=== PATIENT | male | born 1990 | race Caucasian/White ===

== ENCOUNTER 2016-09-28 15:06 | Emergency (ER) | payer SELFPAY ==
[2016-09-28 15:18] VITALS: BP 154/90; PULSE 102; RESP 16; TEMP 97.4; O2SAT 100
== END 2016-09-28 15:46 | disposition home or self-care (01) | DRG 561 ==
LOC: ED 15:06
DX: S02.5XXD Fracture of tooth (traumatic), subsequent encounter for fracture with routine healing (principal); K02.9 Dental caries, unspecified
CPT/HCPCS: 99282

== ENCOUNTER 2016-11-18 13:55 | Emergency (ER) | payer SELFPAY ==
[2016-11-18] MEDS ORDERED: MORPHINE SULFATE 10 MG/ML SOL IV PRN (14:18)
[2016-11-18] MEDS ORDERED: NITROGLYCERIN 0.4 MG TAB SL PRN (14:18)
[2016-11-18] MEDS ORDERED: SODIUM CHLORIDE 0.9% FLUSH 10 ML SOL IV PRN (14:18)
[2016-11-18] MEDS ORDERED: ASPIRIN 81 MG CHEWABLE CTB PO STA (14:18)
[2016-11-18 14:23] VITALS: TEMP 98.4; O2SAT 98
[2016-11-18 14:32] LABS: BASOPHILS % (AUTO) 1 % (0-3); EOSINOPHILS % (AUTO) 2 % (0-9); HEMATOCRIT 43 % (39-53); MEAN CORPUSCULAR VOLUME 94 fL (80-100); MONOCYTES % (AUTO) 5.7 % (0-12); NEUTROPHILS % (AUTO) 62.1 % (37-80)
[2016-11-18] MEDS ORDERED: ASPIRIN 81 MG CHEWABLE CTB ONE (14:43)
[2016-11-18 14:49] LABS: CALCIUM 8.7 mg/dl (8.5-10.1); GLOM FILT RATE 105 mL/min (>60); POTASSIUM 4.1 mMol/L (3.5-5.1); SODIUM 141 mMol/L (136-145)
[2016-11-18 15:39] VITALS: BP 130/84; PULSE 89; RESP 16
== END 2016-11-18 15:53 | disposition home or self-care (01) | DRG 195 ==
LOC: ED 13:55
DX: R09.1 Pleurisy (principal); Z72.0 Tobacco use
CPT/HCPCS: 36415; 71010; 80048; 82550; 84484; 85025; 85378; 85610; 93005; 99283

== ENCOUNTER 2017-01-18 20:10 | Emergency (ER) | payer OTHER ==
[2017-01-18 20:24] VITALS: RESP 14; TEMP 98.6
[2017-01-18 21:48] VITALS: BP 157/59; PULSE 94; O2SAT 99
== END 2017-01-18 21:00 | DRG 552 ==
LOC: ED 20:10
DX: M54.2 Cervicalgia (principal); M54.9 Dorsalgia, unspecified; V48.5XXA Car driver injured in noncollision transport accident in traffic accident, initial encounter; Y92.411 Interstate highway as the place of occurrence of the external cause
CPT/HCPCS: 99282

== ENCOUNTER 2017-09-06 21:59 | Emergency (ER) | payer SELFPAY ==
[2017-09-06 22:10] VITALS: RESP 20; TEMP 99
[2017-09-06 23:25] VITALS: BP 116/79; PULSE 72; O2SAT 98
[2017-09-06] MEDS ORDERED: DIAZEPAM 5MG/ML SOL IV ONE (23:55)
[2017-09-07] MEDS ORDERED: DIAZEPAM 5 MG TAB PO ONE (00:01)
[2017-09-07] MEDS ORDERED: DIAZEPAM 5 MG TAB ONE (00:01)
== END 2017-09-07 00:33 | disposition home or self-care (01) | DRG 563 ==
LOC: ED 21:59
DX: S29.012A Strain of muscle and tendon of back wall of thorax, initial encounter (principal); W18.00XA Striking against unspecified object with subsequent fall, initial encounter
CPT/HCPCS: 72070; 99283; A9270-GY

== ENCOUNTER 2017-10-27 17:25 | Emergency (ER) | payer MEDICAID, OTHER ==
[2017-10-27 18:38] VITALS: TEMP 96.7; O2SAT 100
[2017-10-27 19:32] VITALS: BP 106/79; PULSE 109; RESP 18
== END 2017-10-27 19:02 | disposition home or self-care (01) | DRG 935 ==
LOC: ED 17:25
DX: T24.212A Burn of second degree of left thigh, initial encounter (principal); R23.3 Spontaneous ecchymoses
CPT/HCPCS: 99282; 99283

== ENCOUNTER 2018-01-10 22:34 | Emergency (ER) | payer OTHER ==
[2018-01-10 23:22] LABS: HEMATOCRIT 43 % (39-53); HEMOGLOBIN 14.9 gm/dl (13.5-17.7); MEAN CORPUSCULAR HEMOGLOBIN 32.9 pg (27.0-32.0); MEAN CORPUSCULAR HGB CONC 34.4 gm/dl (32.0-36.0); MEAN CORPUSCULAR VOLUME 96 fL (80-100)
[2018-01-10 23:32] LABS: APPEARANCE,URINE Clear; BILIRUBIN,URINE NEGATIVE (NEGATIVE); COLOR,URINE Light yellow; GLUCOSE, URINE (UA) NEGATIVE (NEGATIVE); KETONES,URINE NEGATIVE (NEGATIVE); LEUKOCYTE ESTERASE ,URINE TRACE (NEGATIVE); NITRATE,URINE NEGATIVE (NEGATIVE); OCCULT BLOOD,URINE NEGATIVE (NEG-TRACE); UROBILINOGEN,URINE 0.2 (0.2-1.0 EU)
[2018-01-10 23:41] LABS: ALBUMIN 3.6 gm/dl (3.4-5.0); BILIRUBIN,TOTAL 0.1 mg/dl (0.2-1.0); CALCIUM 8.8 mg/dl (8.5-10.1); CARBON DIOXIDE 28.1 mEq/L (21-32); CREATININE 0.65 mg/dl (0.80-1.30); THYROID STIMULATING HORMONE 0.74 uIU/ml (0.358-3.740); TOTAL PROTEIN 7.3 gm/dl (6.4-8.2)
[2018-01-10 23:41] LABS: AMPHETAMINES NEGATIVE (NEGATIVE); BACTERIA 1+ (< 1+); BARBITUATES NEGATIVE (NEGATIVE); BENZODIAZEPINES NEGATIVE (NEGATIVE); CANNABINOL(THC) NEGATIVE (NEGATIVE); COCAINE(COC) NEGATIVE (NEGATIVE); CRYSTALS NEGATIVE (0-3 AVE/HPF); EPITHELIAL CELLS 0-2 (SQUAMOUS); METHADONE NEGATIVE (NEGATIVE); METHAMPHETAMINES NEGATIVE (NEGATIVE); OPIATES(OP13) NEGATIVE (NEGATIVE); OXYCODONE(OXY) NEGATIVE (NEGATIVE); PROPOXYPHENE(PPX) NEGATIVE (NEGATIVE); RBC,URINE 0-2 (0-3AV/HPF); TRICYCLIC ANTIDEPRESSANTS NEGATIVE (NEGATIVE)
[2018-01-10 23:42] LABS: ALCOHOL 0.22 gm/dl (0.000-0.08)
[2018-01-10 23:43] LABS: BAND NEUTROPHILS % (MANUAL) 6 %; BASOPHILS % (MANUAL) 0 % (0-3); EOSINOPHILS % (MANUAL) 1 % (0-9); LYMPHOCYTES % (MANUAL) 33 % (10-50); MONOCYTES % (MANUAL) 6 % (0-12); NEUTROPHILS % (MANUAL) 54 % (37-80)
[2018-01-10 23:44] LABS: NORMAL RBCS PRESENT
[2018-01-11 00:41] LABS: ACETAMINOPHEN < 2 ug/ml (10-30); SALICYLATE 5.9 mg/dl (2.8-30.0)
[2018-01-11 02:15] VITALS: TEMP 97.7
[2018-01-11 05:58] VITALS: RESP 16; O2SAT 97
[2018-01-11 11:48] VITALS: BP 124/72; PULSE 80
== END 2018-01-11 16:10 | disposition home or self-care (01) | DRG 880 ==
LOC: ED 22:34
DX: R45.851 Suicidal ideations (principal); F32.9 Major depressive disorder, single episode, unspecified
CPT/HCPCS: 36415; 80053; 80305; 80307; 81001; 84443; 85007; 85027; 99282; 99283

== ENCOUNTER 2018-04-20 01:10 | Emergency (ER) | payer OTHER ==
[2018-04-20] MEDS ORDERED: SODIUM CHLORIDE 0.9% 1000ML 1,000 ML IV ONE ×2 (01:41→03:48)
[2018-04-20] MEDS ORDERED: SODIUM CHLORIDE 0.9% IV ONE (01:42)
[2018-04-20] MEDS ORDERED: PDS IV ONE (01:42)
[2018-04-20] MEDS ORDERED: VANCOMYCIN HCL IV ONE (01:42)
[2018-04-20] MEDS ORDERED: PIPERACILLIN/TAZOBACT 3.375 GM PDS IV ONE (01:48)
[2018-04-20] MEDS ORDERED: VANCOMYCIN HYDROCHLORIDE 500 MG PDS IV ONE (01:55)
[2018-04-20 02:14] LABS: LACTIC ACID 1.1 mMol/L (0.0-2.0)
[2018-04-20 02:19] LABS: HEMATOCRIT 43 % (39-53); HEMOGLOBIN 14.1 gm/dl (13.5-17.7); MEAN CORPUSCULAR HEMOGLOBIN 32.3 pg (27.0-32.0); MEAN CORPUSCULAR HGB CONC 32.9 gm/dl (32.0-36.0); MEAN CORPUSCULAR VOLUME 98 fL (80-100)
[2018-04-20] MEDS ORDERED: LORAZEPAM 2 MG/ML 10ML MDV 2 MG/ML VIAL IV PRN (02:22)
[2018-04-20 02:24] LABS: ALBUMIN 2.9 gm/dl (3.4-5.0); BILIRUBIN,TOTAL 0.7 mg/dl (0.2-1.0); CALCIUM 8.9 mg/dl (8.5-10.1); CARBON DIOXIDE 26.2 mEq/L (21-32); CREATININE 0.71 mg/dl (0.80-1.30); MAGNESIUM 2.1 mg/dl (1.8-2.4); TOTAL PROTEIN 7.9 gm/dl (6.4-8.2)
[2018-04-20] MEDS ORDERED: LORAZEPAM 2 MG/ML SOL ONE ×2 (02:24→03:48)
[2018-04-20 02:29] LABS: POTASSIUM 2.9 mMol/L (3.5-5.1)
[2018-04-20] MEDS ORDERED: POTASSIUM CHLORIDE 10 MEQ TER PO SCH (02:30)
[2018-04-20] MEDS ORDERED: POTASSIUM CHLORIDE 10 MEQ TER ONE (02:30)
[2018-04-20 02:43] LABS: BAND NEUTROPHILS % (MANUAL) 21 %; BASOPHILS % (MANUAL) 0 % (0-3); EOSINOPHILS % (MANUAL) 1 % (0-9); LYMPHOCYTES % (MANUAL) 10 % (10-50); MONOCYTES % (MANUAL) 0 % (0-12); NEUTROPHILS % (MANUAL) 68 % (37-80); NORMAL RBCS PRESENT
[2018-04-20 02:49] LABS: APPEARANCE,URINE Clear; BILIRUBIN,URINE 2+ (NEGATIVE); COLOR,URINE Amber; GLUCOSE, URINE (UA) NEGATIVE (NEGATIVE); KETONES,URINE TRACE (NEGATIVE); LEUKOCYTE ESTERASE ,URINE NEGATIVE (NEGATIVE); NITRATE,URINE NEGATIVE (NEGATIVE); OCCULT BLOOD,URINE NEGATIVE (NEG-TRACE)
[2018-04-20 02:56] LABS: ICTOTEST,URINE NEGATIVE (NEGATIVE); RBC,URINE 0-2 (0-3AV/HPF)
[2018-04-20 02:57] LABS: BACTERIA 1+ (< 1+); CRYSTALS NEGATIVE (0-3 AVE/HPF)
[2018-04-20] MEDS ORDERED: LORAZEPAM 2 MG/ML 10ML MDV 2 MG/ML VIAL IV SCH (03:45)
[2018-04-20 04:39] VITALS: BP 142/74; PULSE 107; RESP 20; TEMP 101.2; O2SAT 96
[2018-04-20] MEDS ORDERED: PIPERACILLIN/TAZOBACT 3.375 GM 3.375 GM in SODIUM CHLORIDE 0.9% 100 ML 100 ML IV SCH (09:43)
== END 2018-04-20 04:10 | disposition short-term general hospital (02) | DRG 592 ==
LOC: ED 01:10
DX: L89.154 Pressure ulcer of sacral region, stage 4 (principal); G83.89 Other specified paralytic syndromes; F32.9 Major depressive disorder, single episode, unspecified; R50.9 Fever, unspecified; R00.0 Tachycardia, unspecified; D72.829 Elevated white blood cell count, unspecified
CPT/HCPCS: 36415; 80053; 81001; 83735; 84100; 85007; 85027; 87040; 87070; 87077; 87088; 87186; 87205; 93005; 94762; 96365; 96366; 96374; 99070; 99284; 99285; J2060; J2543; J3370; A6232; A9270-GY

== ENCOUNTER 2018-05-12 12:15 | Inpatient (IN) | payer SELFPAY ==
[2018-05-12 13:00] LABS: BASOPHILS % (AUTO) 0 % (0-3); EOSINOPHILS % (AUTO) 1 % (0-9); HEMATOCRIT 42 % (39-53); HEMOGLOBIN 13.2 gm/dl (13.5-17.7); LYMPHOCYTES % (AUTO) 12.8 % (10-50); MEAN CORPUSCULAR HEMOGLOBIN 31.4 pg (27.0-32.0); MEAN CORPUSCULAR HGB CONC 31.6 gm/dl (32.0-36.0); MONOCYTES % (AUTO) 6.8 % (0-12)
[2018-05-12 13:02] LABS: LACTIC ACID 1.6 mMol/L (0.0-2.0)
[2018-05-12 13:06] LABS: MEAN CORPUSCULAR VOLUME 99 fL (80-100)
[2018-05-12 13:11] LABS: INR 1.06 (0.86-1.12)
[2018-05-12 13:20] LABS: ALBUMIN 2.6 gm/dl (3.4-5.0); BILIRUBIN,TOTAL 0.4 mg/dl (0.2-1.0); CALCIUM 8.8 mg/dl (8.5-10.1); CARBON DIOXIDE 33.9 mEq/L (21-32); CREATININE 0.83 mg/dl (0.80-1.30); POTASSIUM 3.7 mMol/L (3.5-5.1); TOTAL PROTEIN 7.1 gm/dl (6.4-8.2)
[2018-05-12] MEDS ORDERED: CEFTRIAXONE 1 GM PDS 2 GM in SODIUM CHLORIDE 0.9% 100 ML 100 ML IV SCH (14:15)
[2018-05-12] MEDS: CEFTAZIDIME 1 GM PDS IV SCH ×2 (14:45→23:00)
[2018-05-12] MEDS: GABAPENTIN 300 MG CAP PO SCH ×2 (16:35→20:28)
[2018-05-12] MEDS ORDERED: HYDROXYZINE PAMOATE 25 MG CAP PO PRN (17:23)
[2018-05-12] MEDS: ACETAMINOPHEN 325 MG PO PRN (18:18)
[2018-05-12] MEDS ORDERED: SODIUM CHLORIDE 0.9% 1000ML 1,000 ML IV ONE (19:07)
[2018-05-12] MEDS ORDERED: LORAZEPAM 2 MG/ML 10ML MDV 2 MG/ML VIAL IV PRN (19:10)
[2018-05-12 19:29] LABS: MAGNESIUM 1.8 mg/dl (1.8-2.4)
[2018-05-12 19:31] LABS: ALCOHOL < 0.003 gm/dl (0.000-0.08)
[2018-05-12] MEDS: NICOTINE 21 MG PATCH TD SCH (20:12)
[2018-05-12] MEDS ORDERED: LORAZEPAM 2 MG/ML SOL ONE (20:22)
[2018-05-12] MEDS: LORAZEPAM 2 MG/ML SOL IV PRN (20:27)
[2018-05-12] MEDS: SODIUM CHLORIDE 0.9% 1000ML 1,000 ML IV SCH (20:28)
[2018-05-12] MEDS: QUETIAPINE FUMARATE 25 MG TAB PO SCH (20:32)
[2018-05-12] MEDS ORDERED: GABAPENTIN 300 MG CAP PO SCH (21:00)
[2018-05-12] MEDS: BACLOFEN 10 MG PO SCH (22:38)
[2018-05-13] MEDS: LORAZEPAM 2 MG/ML SOL IV PRN (02:32)
[2018-05-13] MEDS: CEFTAZIDIME 1 GM PDS IV SCH ×2 (05:53→16:51)
[2018-05-13] MEDS: SODIUM CHLORIDE 0.9% 1000ML 1,000 ML IV SCH ×2 (10:27→16:53)
[2018-05-13] MEDS: BACLOFEN 10 MG PO SCH ×2 (11:26→14:44)
[2018-05-13] MEDS: SERTRALINE HYDROCHLORIDE 50 MG TAB PO SCH (11:26)
[2018-05-13] MEDS: GABAPENTIN 300 MG CAP PO SCH ×4 (11:26→21:39)
[2018-05-13] MEDS: BACLOFEN 10 MG TAB PO SCH ×3 (13:30→21:40)
[2018-05-13] MEDS ORDERED: PROPOFOL 10 MG/ML 200 MG/20 ML EMU IV ONE ×2 (13:49→14:59)
[2018-05-13] MEDS ORDERED: FENTANYL 100MCG/2ML SOL ONE (13:50)
[2018-05-13] MEDS ORDERED: MIDAZOLAM 2 MG/2 ML SOL ONE (14:13)
[2018-05-13] MEDS ORDERED: MORPHINE SULFATE 10 MG/ML SOL IV PRN (16:12)
[2018-05-13] MEDS ORDERED: MORPHINE SULFATE 10 MG/ML SOL ONE (16:39)
[2018-05-13] MEDS: NICOTINE 21 MG PATCH TD SCH (18:00)
[2018-05-13] MEDS: CLOTRIMAZOLE 1% CREAM TOP SCH (21:39)
[2018-05-13] MEDS: QUETIAPINE FUMARATE 25 MG TAB PO SCH (21:40)
[2018-05-13] MEDS ORDERED: LORAZEPAM 2 MG/ML SOL IV PRN (22:02)
[2018-05-13] MEDS ORDERED: LORAZEPAM 0.5 MG TAB PO PRN (22:02)
[2018-05-13] MEDS: ACETAMINOPHEN 325 MG PO PRN (23:48)
[2018-05-14] MEDS: CLOTRIMAZOLE 1% CREAM TOP SCH ×3 (00:10→22:45)
[2018-05-14] MEDS: CEFTAZIDIME 1 GM PDS IV SCH ×3 (01:14→18:16)
[2018-05-14] MEDS ORDERED: IBUPROFEN 400 MG TAB PO ONE (02:27)
[2018-05-14] MEDS ORDERED: SODIUM CHLORIDE 0.9% 1000ML 1,000 ML IV ONE (02:28)
[2018-05-14 02:55] LABS: BASOPHILS % (AUTO) 1 % (0-3); EOSINOPHILS % (AUTO) 2 % (0-9); HEMATOCRIT 34 % (39-53); HEMOGLOBIN 11.2 gm/dl (13.5-17.7); LYMPHOCYTES % (AUTO) 17.6 % (10-50); MEAN CORPUSCULAR HEMOGLOBIN 32.1 pg (27.0-32.0); MEAN CORPUSCULAR HGB CONC 32.8 gm/dl (32.0-36.0); MEAN CORPUSCULAR VOLUME 98 fL (80-100); MONOCYTES % (AUTO) 6.4 % (0-12); NEUTROPHILS % (AUTO) 73.4 % (37-80)
[2018-05-14] MEDS: SODIUM CHLORIDE 0.9% 1000ML 1,000 ML IV SCH ×2 (03:43→16:00)
[2018-05-14] MEDS ORDERED: PDS IV ONE (03:50)
[2018-05-14] MEDS ORDERED: SODIUM CHLORIDE 0.9% IV ONE (03:50)
[2018-05-14] MEDS ORDERED: VANCOMYCIN HCL IV ONE (03:50)
[2018-05-14] MEDS ORDERED: VANCOMYCIN HYDROCHLORIDE 500 MG PDS IV ONE ×2 (04:14→16:23)
[2018-05-14] MEDS ORDERED: SODIUM CHLORIDE 0.9% 250 ML 250 ML IV ONE ×2 (04:15→16:23)
[2018-05-14] MEDS: GABAPENTIN 300 MG CAP PO SCH ×4 (08:38→20:44)
[2018-05-14] MEDS: BACLOFEN 10 MG TAB PO SCH ×4 (08:38→20:43)
[2018-05-14] MEDS: SERTRALINE HYDROCHLORIDE 50 MG TAB PO SCH (08:39)
[2018-05-14] MEDS: LORAZEPAM 2 MG/ML SOL IV PRN (15:57)
[2018-05-14] MEDS: VANCOMYCIN HCL 500 MG PDS 1,000 MG in SODIUM CHLORIDE 0.9% 250 ML 250 ML IV SCH (16:49)
[2018-05-14] MEDS: NICOTINE 21 MG PATCH TD SCH (20:07)
[2018-05-14] MEDS: ACETAMINOPHEN 325 MG PO PRN (20:45)
[2018-05-14] MEDS: QUETIAPINE FUMARATE 25 MG TAB PO SCH (22:42)
[2018-05-15] MEDS: CEFTAZIDIME 1 GM PDS IV SCH ×3 (01:47→17:36)
[2018-05-15] MEDS: SODIUM CHLORIDE 0.9% 1000ML 1,000 ML IV SCH ×2 (01:47→10:05)
[2018-05-15] MEDS ORDERED: VANCOMYCIN HYDROCHLORIDE 500 MG PDS IV ONE ×2 (03:55→15:43)
[2018-05-15] MEDS ORDERED: SODIUM CHLORIDE 0.9% 250 ML 250 ML IV ONE ×2 (03:56→15:43)
[2018-05-15] MEDS: VANCOMYCIN HCL 500 MG PDS 1,000 MG in SODIUM CHLORIDE 0.9% 250 ML 250 ML IV SCH ×2 (04:36→15:58)
[2018-05-15 08:18] LABS: BASOPHILS % (AUTO) 0 % (0-3); EOSINOPHILS % (AUTO) 4 % (0-9); HEMATOCRIT 37 % (39-53); HEMOGLOBIN 11.6 gm/dl (13.5-17.7); LYMPHOCYTES % (AUTO) 29.7 % (10-50); MEAN CORPUSCULAR HEMOGLOBIN 31.2 pg (27.0-32.0); MEAN CORPUSCULAR HGB CONC 31.7 gm/dl (32.0-36.0); MONOCYTES % (AUTO) 7.4 % (0-12); NEUTROPHILS % (AUTO) 58.1 % (37-80)
[2018-05-15 08:20] LABS: MEAN CORPUSCULAR VOLUME 99 fL (80-100)
[2018-05-15 08:24] LABS: CALCIUM 8.4 mg/dl (8.5-10.1); CARBON DIOXIDE 29.9 mEq/L (21-32); CREATININE 0.55 mg/dl (0.80-1.30); POTASSIUM 3.7 mMol/L (3.5-5.1)
[2018-05-15] MEDS: BACLOFEN 10 MG TAB PO SCH ×4 (10:04→20:52)
[2018-05-15] MEDS: SERTRALINE HYDROCHLORIDE 50 MG TAB PO SCH (10:05)
[2018-05-15] MEDS: GABAPENTIN 300 MG CAP PO SCH ×4 (10:05→20:53)
[2018-05-15] MEDS: CLOTRIMAZOLE 1% CREAM TOP SCH ×2 (10:06→20:52)
[2018-05-15] MEDS: NICOTINE 21 MG PATCH TD SCH (17:48)
[2018-05-15] MEDS: QUETIAPINE FUMARATE 25 MG TAB PO SCH (20:53)
[2018-05-16] MEDS: SODIUM CHLORIDE 0.9% 1000ML 1,000 ML IV SCH ×2 (01:07→07:19)
[2018-05-16] MEDS: CEFTAZIDIME 1 GM PDS IV SCH ×3 (01:07→17:18)
[2018-05-16] MEDS: VANCOMYCIN HCL 500 MG PDS 1,000 MG in SODIUM CHLORIDE 0.9% 250 ML 250 ML IV SCH ×2 (04:11→17:17)
[2018-05-16 07:15] LABS: BASOPHILS % (AUTO) 1 % (0-3); EOSINOPHILS % (AUTO) 5 % (0-9); HEMATOCRIT 36 % (39-53); HEMOGLOBIN 11.9 gm/dl (13.5-17.7); LYMPHOCYTES % (AUTO) 31.2 % (10-50); MEAN CORPUSCULAR HGB CONC 32.7 gm/dl (32.0-36.0); MEAN CORPUSCULAR VOLUME 98 fL (80-100); MONOCYTES % (AUTO) 6.4 % (0-12)
[2018-05-16 07:19] LABS: CALCIUM 8.4 mg/dl (8.5-10.1); CARBON DIOXIDE 30.4 mEq/L (21-32); CREATININE 0.62 mg/dl (0.80-1.30); CRP INFLAMMATORY 4.58 mg/dl (0.00-0.33); POTASSIUM 3.6 mMol/L (3.5-5.1)
[2018-05-16 08:02] VITALS: BP 129/80; PULSE 98; RESP 12; TEMP 98.1; O2SAT 96
[2018-05-16] MEDS: CLOTRIMAZOLE 1% CREAM TOP SCH (09:30)
[2018-05-16] MEDS: BACLOFEN 10 MG TAB PO SCH ×3 (09:43→17:17)
[2018-05-16] MEDS: GABAPENTIN 300 MG CAP PO SCH ×3 (09:44→17:17)
[2018-05-16] MEDS: SERTRALINE HYDROCHLORIDE 50 MG TAB PO SCH (09:45)
[2018-05-16] MEDS: NICOTINE 21 MG PATCH TD SCH (17:18)
== END 2018-05-16 17:30 | disposition home or self-care (01) | DRG 939 ==
LOC: ED 12:15 → ACUTE CARE 15:50
PROVIDERS: ADMIT Family Medicine; ATTEND Family Medicine
PROC: 0KBN0ZZ Excision of Right Hip Muscle, Open Approach (ICD-10-PCS; principal; 2018-05-12)
DX: S31.819D Unspecified open wound of right buttock, subsequent encounter (principal); L89.314 Pressure ulcer of right buttock, stage 4; G83.89 Other specified paralytic syndromes; F17.210 Nicotine dependence, cigarettes, uncomplicated; R50.9 Fever, unspecified; R00.0 Tachycardia, unspecified; A49.1 Streptococcal infection, unspecified site
CPT/HCPCS: 36415; 72192; 80048; 80053; 80307; 83735; 85025; 85610; 87040; 87070; 87075; 87077; 87186; 87205; 96365; 99070; 99211; 99231; 99284; J0713; J2060; J2250; J2270; J3010; J3370; A4450; A6232; A6446; A9270-GY; J2704; J3490

== ENCOUNTER 2018-05-21 17:31 | Emergency (ER) | payer SELFPAY ==
[2018-05-21] MEDS ORDERED: AMPICILLIN/SULBACTAM 3 GM PDS 3 GM in SODIUM CHLORIDE 0.9% 100 ML 100 ML IV ONE (18:22)
[2018-05-21] MEDS ORDERED: AMPICILLIN/SULBACTAM 3 GM PDS ONE (18:32)
[2018-05-21 18:33] LABS: HEMATOCRIT 41 % (39-53); HEMOGLOBIN 13.4 gm/dl (13.5-17.7); MEAN CORPUSCULAR HEMOGLOBIN 30.9 pg (27.0-32.0); MEAN CORPUSCULAR HGB CONC 32.3 gm/dl (32.0-36.0); MEAN CORPUSCULAR VOLUME 96 fL (80-100)
[2018-05-21 18:37] LABS: CALCIUM 8.9 mg/dl (8.5-10.1); CARBON DIOXIDE 25.7 mEq/L (21-32); CREATININE 0.65 mg/dl (0.80-1.30); POTASSIUM 4.7 mMol/L (3.5-5.1)
[2018-05-21 19:07] LABS: BAND NEUTROPHILS % (MANUAL) 2 %; BASOPHILS % (MANUAL) 1 % (0-3); EOSINOPHILS % (MANUAL) 0 % (0-9); LYMPHOCYTES % (MANUAL) 12 % (10-50); MONOCYTES % (MANUAL) 6 % (0-12); NEUTROPHILS % (MANUAL) 79 % (37-80); NORMAL RBCS NORMAL RBCS
[2018-05-21 19:52] VITALS: BP 125/79; PULSE 77; RESP 18; TEMP 98; O2SAT 99
== END 2018-05-21 20:00 | disposition home or self-care (01) | DRG 594 ==
LOC: ED 17:31
DX: L89.219 Pressure ulcer of right hip, unspecified stage (principal); L89.319 Pressure ulcer of right buttock, unspecified stage; L89.899 Pressure ulcer of other site, unspecified stage
CPT/HCPCS: 80048; 85007; 85027; 96365; 99283; 99284; J0295; A6232; A6402

== ENCOUNTER 2018-05-29 13:34 | Emergency (ER) | payer MEDICAID ==
[2018-05-29 16:19] VITALS: BP 108/68; PULSE 85; RESP 16; TEMP 97; O2SAT 100
== END 2018-05-29 15:15 | disposition home or self-care (01) | DRG 594 ==
LOC: ED 13:34
DX: L89.309 Pressure ulcer of unspecified buttock, unspecified stage (principal)
CPT/HCPCS: 99282; 99283; A4450; A6232; A6402

== ENCOUNTER 2018-06-01 15:45 | Emergency (ER) | payer MEDICAID ==
[2018-06-01] MEDS ORDERED: SODIUM CHLORIDE 0.9% 1000ML 1,000 ML IV ONE (15:54)
[2018-06-01 16:21] VITALS: TEMP 99.1
[2018-06-01 16:36] LABS: HEMATOCRIT 40 % (39-53); HEMOGLOBIN 12.6 gm/dl (13.5-17.7); MEAN CORPUSCULAR HEMOGLOBIN 29.5 pg (27.0-32.0); MEAN CORPUSCULAR HGB CONC 31.7 gm/dl (32.0-36.0); MEAN CORPUSCULAR VOLUME 93 fL (80-100)
[2018-06-01 16:47] LABS: ALBUMIN 2.4 gm/dl (3.4-5.0); BILIRUBIN,TOTAL 0.5 mg/dl (0.2-1.0); CALCIUM 8.5 mg/dl (8.5-10.1); CREATININE 0.71 mg/dl (0.80-1.30); POTASSIUM 3.2 mMol/L (3.5-5.1)
[2018-06-01 17:03] LABS: BAND NEUTROPHILS % (MANUAL) 12 %; BASOPHILS % (MANUAL) 0 % (0-3); EOSINOPHILS % (MANUAL) 1 % (0-9); LYMPHOCYTES % (MANUAL) 10 % (10-50); MONOCYTES % (MANUAL) 6 % (0-12); NEUTROPHILS % (MANUAL) 71 % (37-80)
[2018-06-01 17:04] LABS: NORMAL RBCS PRESENT
[2018-06-01] MEDS ORDERED: CEFTRIAXONE 1 GM PDS 2 GM in SODIUM CHLORIDE 0.9% 100 ML 100 ML IV ONE (17:22)
[2018-06-01] MEDS ORDERED: CEFTRIAXONE 1 GM PDS ONE (17:35)
[2018-06-01] MEDS ORDERED: SODIUM CHLORIDE 0.9% IV ONE (18:14)
[2018-06-01] MEDS ORDERED: PENICILLIN POTASSIUM IV ONE (18:14)
[2018-06-01] MEDS ORDERED: LEVOFLOXACIN 500 MG TAB PO ONE (18:20)
[2018-06-01] MEDS ORDERED: LEVOFLOXACIN 500 MG TAB ONE (18:25)
[2018-06-01 19:38] VITALS: BP 108/72; PULSE 106; RESP 24; O2SAT 99
== END 2018-06-01 19:32 | disposition home or self-care (01) | DRG 594 ==
LOC: ED 15:45
DX: L89.320 Pressure ulcer of left buttock, unstageable (principal)
CPT/HCPCS: 36415; 80053; 85007; 85027; 87040; 96365; 96366; 99070; 99283; 99284; J0696; A9270-GY

== ENCOUNTER 2018-06-02 20:18 | Emergency (ER) | payer MEDICAID ==
[2018-06-02] MEDS ORDERED: SODIUM CHLORIDE 0.9% 1000ML 1,000 ML IV ONE (20:52)
[2018-06-02] MEDS ORDERED: CEFTRIAXONE 1 GM PDS 2 GM in SODIUM CHLORIDE 0.9% 100 ML 100 ML IV ONE (20:55)
[2018-06-02 20:57] LABS: BASOPHILS % (AUTO) 0 % (0-3); EOSINOPHILS % (AUTO) 0 % (0-9); HEMATOCRIT 38 % (39-53); HEMOGLOBIN 12.1 gm/dl (13.5-17.7); LYMPHOCYTES % (AUTO) 8.8 % (10-50); MEAN CORPUSCULAR HGB CONC 32.3 gm/dl (32.0-36.0); MEAN CORPUSCULAR VOLUME 93 fL (80-100); MONOCYTES % (AUTO) 5.9 % (0-12); NEUTROPHILS % (AUTO) 84.8 % (37-80)
[2018-06-02] MEDS ORDERED: LEVOFLOXACIN 25 MG/ML 500 MG in SODIUM CHLORIDE 0.9% 100 ML 100 ML IV ONE (21:13)
[2018-06-02] MEDS ORDERED: CEFTRIAXONE 1 GM PDS ONE (21:14)
[2018-06-02] MEDS ORDERED: LEVOFLOXACIN 25 MG/ML SOL IV ONE (21:14)
[2018-06-02] MEDS ORDERED: SODIUM CHLORIDE 0.9% 500 ML 500 ML IV ONE (21:55)
[2018-06-02] MEDS ORDERED: ACETAMINOPHEN 500 MG 500 MG TAB PO ONE (22:30)
[2018-06-02 22:47] LABS: BASOPHILS % (AUTO) 0 % (0-3); EOSINOPHILS % (AUTO) 0 % (0-9); HEMATOCRIT 31 % (39-53); HEMOGLOBIN 10.3 gm/dl (13.5-17.7); LYMPHOCYTES % (AUTO) 10.4 % (10-50); MEAN CORPUSCULAR HEMOGLOBIN 30.3 pg (27.0-32.0); MEAN CORPUSCULAR VOLUME 92 fL (80-100); MONOCYTES % (AUTO) 8.5 % (0-12); NEUTROPHILS % (AUTO) 80.7 % (37-80)
[2018-06-02] MEDS ORDERED: ACETAMINOPHEN 500 MG 500 MG TAB ONE (23:05)
[2018-06-02 23:50] VITALS: BP 100/50; PULSE 103; RESP 14; TEMP 99.8; O2SAT 99
== END 2018-06-02 23:40 | disposition short-term general hospital (02) | DRG 594 ==
LOC: ED 20:18
DX: L89.44 Pressure ulcer of contiguous site of back, buttock and hip, stage 4 (principal); R50.9 Fever, unspecified; R11.0 Nausea; Z48.00 Encounter for change or removal of nonsurgical wound dressing; L98.499 Non-pressure chronic ulcer of skin of other sites with unspecified severity; L98.419 Non-pressure chronic ulcer of buttock with unspecified severity
CPT/HCPCS: 36415; 85025; 87040; 96365; 96366; 99211; 99283; 99285; J0696; J1956; A4450; A6232